=== PATIENT | male | born 1955 | race Caucasian/White ===

== ENCOUNTER 2018-11-14 15:41 | Inpatient (IN) ==
[2018-11-14] MEDS ORDERED: ASPIRIN CHEW 324 MG PO STA (16:04)
[2018-11-14] MEDS ORDERED: SODIUM CHLORIDE 0.9% 1000ML 1,000 ML IV STA (16:04)
--- NOTE | 2018-11-14 16:17 | Emergency Department Note ---
History of Present Illness General Chief Complaint: Shortness of Breath/Dyspnea Stated Complaint: SOB, CHEST TIGHTNESS Source: patient Mode of arrival: ambulatory Limitations: no limitations History of Present Illness Provider Complaint: chest pain Onset (ago): hour(s) greater than 10 Time: 02:54 Duration: intermittent Onset: during rest and during exertion Pain Location: substernal Pain Radiation: none Severity: moderate Maximum Pain Intensity: 6 Current Pain Intensity: 0 Quality: + tightness and + heaviness Relieved By: + rest Exacerbated By: + exertion Context: + recent travel (Pt. lives in [place] and travels back/forth to [place], as his works here); no recent illness, no recent surgery, no recent immobilization, no trauma/injury and no history of DVT/PE Associated symptoms: + nausea, + diaphoresis, + dyspnea and + cough Treatments prior to arrival: none This 63-year-old male patient presents emergency department today, ambulatory, accompanied by his . The patient reports chest tightness and dyspnea which awoke him from sleep at 2:54 AM. The patient states the symptoms overnight lasted for approximately 1 hour and 20 minutes, and were associated with cold sweats, nausea, diaphoresis. The patient states the symptoms went away and he was able to go back to sleep. He states earlier today, he was trying to mow the lawn and do some physical activity, but notices every time he walks or exerts himself in any way, the pain and dyspnea return. He does report a cough which began a proximally 1 week ago. He denies any fevers, congestion, rhinorrhea, abdominal pain, vomiting, diarrhea, constipation, or other recent illness. The patient does travel back and forth between [place] and [place] frequently, as his lives and works locally here and he still lives in [place]. The patient reports a history of hypertension and hyperlipidemia, but otherwise denies any history of cardiac events. He does have a family history of heart disease and [place] at 57 years old and his mother and CHF and IL 84 years old and his father. The patient rates his pain 0/10 at present. Home Medications Home Medications Medication Instructions Recorded Confirmed Type amlodipine-benazepril 1 cap PO DAILY 11/14/18 11/14/18 History aspirin 81 mg PO QAM 11/14/18 11/14/18 History indomethacin 50 mg PO DAILY 11/14/18 11/14/18 History pravastatin 40 mg PO HS 11/14/18 11/14/18 History Allergies Allergy/AdvReac Type Severity Reaction Status Date / Time No Known Allergies Allergy Verified 11/14/18 16:58 Past Med/Surg History Medical History Hyperlipidemia Hypertension Social History Preferred Language: Colombian Feels Safe at Home: Yes Smoking Status: Never smoker Review of Systems A total of 10 systems reviewed and were otherwise negative Physical Exam Vital Signs Vital Signs - 24 hr 11/14/18 15:44 11/14/18 17:10 Temperature 36.8 C Temperature Source Oral Sepsis Recent Fever Within 48 Hours No Sepsis New/Unexplained Change in Mental Status No Sepsis Action Taken by Nursing No Action Required Pulse Rate 98 H 71 Pulse Rate [Apical] 71 Pulse Rhythm Regular Pulse Rhythm [Apical] Regular Pulse Strength [Apical] Normal Respiratory Rate 18 16 Respiratory Effort / Characteristics Non-Labored Non-Labored Respiratory Depth Normal Normal Respiratory Pattern Regular Blood Pressure 145/86 H Blood Pressure [Right Arm] 134/73 Blood Pressure Mean 105 Blood Pressure Mean [Right Arm] 93 Blood Pressure Position Sitting Blood Pressure Position [Right Arm] Sitting Pulse Oximetry 96 96 Oxygen Delivery Method Room Air Room Air VITALS: Vitals are noted on the nurse's note and reviewed by myself. Vital signs stable. GENERAL: This is a 63-year-old white male, in no acute distress, nondiaphoretic, well-developed well-nourished. SKIN: The skin was without rashes, erythema, edema, or bruising. There is no tenting of the skin. Capillary reflex less than 2 seconds. HEAD: Normocephalic atraumatic. EARS: External auditory canals clear, tympanic membranes pearly ho without erythema or effusion bilaterally. EYES: Pupils equal round and reactive to light and accommodation. Conjunctivae without injection, sclerae without icterus. Extraocular movements intact. NOSE: Patent, turbinates without inflammation or discharge. No sinus tenderness. MOUTH: Mucous membranes moist. Tonsils are not enlarged. Pharynx without erythema or exudate. Uvula midline. Airway patent. Tongue does not deviate. NECK: Supple without nuchal rigidity. No lymphadenopathy. Cervical spine is nontender. No JVD. HEART: Regular rate and rhythm without murmurs gallops or rubs. LUNGS: Clear to auscultation bilaterally without wheezes, rales or rhonchi. No dullness to percussion. No retractions or accessory muscle use. ABDOMEN: Positive bowel sounds x 4. Normal tympanic percussion. Soft, nontender, without masses or organomegaly. Sebastian sign negative. No guarding or rebound tenderness. MUSCULOSKELETAL: No muscle atrophy, erythema, or edema noted. Full range of motion without joint tenderness in all extremities. No tenderness to palpation. Normal gait. Strength 5/5 throughout. NEURO: Patient was alert and oriented to person place and time. Normal sensation to light and sharp touch. No focal neurological deficits. Course The patient was seen and evaluated as above. IV access obtained, labs drawn. Patient given IV fluids and 324 mg aspirin chew. Imaging performed and reviewed by myself and radiologist as above. Labs reviewed by myself. I discussed the case with my attending. Initiated heparin drip. I discussed the findings with the patient at bedside. He was reassessed and continues to deny any current pain. Discussed the case with Dr. Landrum, [facility] hospitalist. Still awaiting return page from cardiology. She advised to speak with cardiology and advise her of the recommendation. Spoke with Dr. Nevarez, [facility] industrial maintenance repairer. Advised him of patient condition and requested recommendations. He advised that if the patient is not currently having chest pain to give the heparin, initiate 5 of IV Lopressor, and start scheduled metoprolol 12.5 mg twice daily. The patient will likely have heart cath performed on Friday. Discussed this recommendation with Dr. Landrum. Please see hospitalist and cardiology dictation regarding ongoing management care of this patient. Administered Medications Discontinued Medications Aspirin (Aspirin) 324 mg PO NOW STA Stop: 11/14/18 16:05 Last Admin: 11/14/18 16:13 Dose: 324 mg Documented by: [id number] Heparin Sodium/Dextrose () 1 ea IV ONE ONE; Protocol Stop: 11/14/18 17:33 Last Admin: 11/14/18 18:30 Dose: Not Given Documented by: [id number] Heparin Sodium/Dextrose (Heparin Sodium/Dextrose) Confirm Administered Dose 25,000 units IV .STK-MED ONE Stop: 11/14/18 18:26 Last Admin: 11/14/18 18:28 Dose: 31 ml Documented by: [id number] Cosigned by: [id number] Sodium Chloride (Nss 1000ml) 1,000 mls @ 999 mls/hr IV .Q1H1M STA Stop: 11/14/18 17:04 Last Infusion: 11/14/18 17:12 Dose: 0 mls/hr Documented by: [id number] Admin: 11/14/18 16:13 Dose: 999 mls/hr Documented by: [id number] Metoprolol Tartrate (Lopressor) 5 mg IV NOW STA Stop: 11/14/18 17:45 Last Admin: 11/14/18 18:15 Dose: 5 mg Documented by: [id number] Medical Decision Making Differential Diagnosis + fracture of rib, + pneumothorax, + stable angina, + unstable angina pectoris, + atypical chest pain, + st elevation myocardial infarction, + costochondritis, + chest pain, + biliary colic, + cardiac ischemia, + myocarditis, + pericarditis, + costochondritis, + pleurisy, + aortic dissection, + pulmonary embolism, + pneumonia, + musculoskeletal, + infections, + cholecystitis, + panc reatitis and + esophageal rupture Home Medications Current Medication List: was personally reviewed by me Laboratory Data Attestation: I reviewed the patient's lab results. No leukocytosis, anemia, thrombocytopenia. Renal, hepatic function, and electrolytes without significant abnormality. Coags normal. D-dimer mildly elevated at 590. Troponin elevated 3.78. Result diagrams: 11/14/18 16:40 11/14/18 16:07 Lab Results 11/14/18 11/14/18 11/14/18 Range/Units 16:07 16:07 16:07 WBC (4.8-10.8) K/uL RBC (4.7-6.1) M/uL Hgb (14.0-18.0) g/dL Hct (42-52) % MCV (80-100) fL MCH (25-34) pg MCHC (32-36) g/dL RDW Std Deviation (36.4-46.3) fL RDW Coeff of Kathy (11.5-14.5) % Plt Count (130-400) K/uL MPV (7.4-10.4) fL Immature Gran % (Auto) % Neut % (Auto) % Lymph % (Auto) % Fajardo % (Auto) % Eos % (Auto) % Baso % (Auto) % Immature Gran # (Auto) (0.00-0.02) K/uL Neut # (Auto) (1.4-6.5) K/uL Lymph # (Auto) (1.2-3.4) K/uL Fajardo # (Auto) (0.11-0.59) K/uL Eos # (Auto) (0-0.5) K/uL Baso # (Auto) (0-0.2) K/uL PT 10.2 (9.0-12.0) Seconds INR 1.0 (0.9-1.1) APTT 25.1 (21.0-31.0) Seconds PTT Ratio 0.9 D-Dimer 590 H* Cancelled (0-500) ug/L FEU Sodium 141 (136-145) mmol/L Potassium 4.1 (3.5-5.1) mmol/L Chloride 110 H (98-107) mmol/L Carbon Dioxide 26 (21-32) mmol/L Anion Gap 5.0 (3-11) BUN 27 H (7-18) mg/dl Creatinine 1.20 (0.6-1.4) mg/dl Est Cr Clr Drug Dosing 77.9 ml/min Est GFR ( Amer) 74.1 Est GFR (Non-Af Amer) 64.0 BUN/Creatinine Ratio 22.4 H (10-20) Glucose 96 (70-99) mg/dl Calcium 9.0 (8.5-10.1) mg/dl Total Bilirubin 0.2 (0.2-1) mg/dl AST 41 H (15-37) U/L ALT 59 (12-78) U/L Alkaline Phosphatase 86 (45-117) U/L Troponin I 3.780 H* (0-0.045) ng/ml Total Protein 7.2 (6.4-8.2) gm/dl Albumin 3.8 (3.4-5.0) gm/dl Globulin 3.4 (2.5-4.0) gm/dl Albumin/Globulin Ratio 1.1 (0.9-2) Lipase 114 (73-393) U/L Specimen Hemolysis 11/14/18 Range/Units 16:40 WBC 9.41 (4.8-10.8) K/uL RBC 4.72 (4.7-6.1) M/uL Hgb 13.7 L (14.0-18.0) g/dL Hct 39.9 L (42-52) % MCV 84.5 (80-100) fL MCH 29.0 (25-34) pg MCHC 34.3 (32-36) g/dL RDW Std Deviation 45.1 (36.4-46.3) fL RDW Coeff of Kathy 14.5 (11.5-14.5) % Plt Count 272 (130-400) K/uL MPV 8.8 (7.4-10.4) fL Immature Gran % (Auto) 0.1 % Neut % (Auto) 59.0 % Lymph % (Auto) 27.1 % Fajardo % (Auto) 9.1 % Eos % (Auto) 4.5 % Baso % (Auto) 0.2 % Immature Gran # (Auto) 0.01 (0.00-0.02) K/uL Neut # (Auto) 5.55 (1.4-6.5) K/uL Lymph # (Auto) 2.55 (1.2-3.4) K/uL Fajardo # (Auto) 0.86 H (0.11-0.59) K/uL Eos # (Auto) 0.42 (0-0.5) K/uL Baso # (Auto) 0.02 (0-0.2) K/uL PT (9.0-12.0) Seconds INR (0.9-1.1) APTT (21.0-31.0) Seconds PTT Ratio D-Dimer (0-500) ug/L FEU Sodium (136-145) mmol/L Potassium (3.5-5.1) mmol/L Chloride (98-107) mmol/L Carbon Dioxide (21-32) mmol/L Anion Gap (3-11) BUN (7-18) mg/dl Creatinine (0.6-1.4) mg/dl Est Cr Clr Drug Dosing ml/min Est GFR ( Amer) Est GFR (Non-Af Amer) BUN/Creatinine Ratio (10-20) Glucose (70-99) mg/dl Calcium (8.5-10.1) mg/dl Total Bilirubin (0.2-1) mg/dl AST (15-37) U/L ALT (12-78) U/L Alkaline Phosphatase (45-117) U/L Troponin I (0-0.045) ng/ml Total Protein (6.4-8.2) gm/dl Albumin (3.4-5.0) gm/dl Globulin (2.5-4.0) gm/dl Albumin/Globulin Ratio (0.9-2) Lipase (73-393) U/L Specimen Hemolysis Imaging Data Chest x-ray: Radiologist's impression: XR chest 1V portable CLINICAL HISTORY: 63 years-old Male presenting with Chest Pain, chest tightness. TECHNIQUE: Portable upright AP view of the chest was obtained. COMPARISON: None. FINDINGS: Cardiac silhouette borderline enlarged. No focal opacity. No large effusion or pneumothorax. Osseous structures normal. Upper abdomen normal. IMPRESSION: 1. No acute cardiopulmonary disease. Electronically signed by: Nate Stanton M.D. 11/14/2018 4:30 PM ECG Data Attestation: I personally reviewed and interpreted this ECG as follows: Indication: chest pain Rate (beats per minute): 87 Rhythm: normal sinus Findings: + ST depression (Anterolateral); no ectopy Comparison ECG Date: no prior available Blood Pressure Blood Pressure Findings: Normal blood pressure MDM Narrative This 63-year-old male patient presented to the emergency department today complaining of chest pain and dyspnea on exertion. Symptoms began suddenly while sleeping lasted for approximately an hour and 20 minutes. The pain went away and the patient was able to go back to bed, but upon awakening earlier today, noticed he was continuing to have pain with even mild exertion. He decided to come to the emergency department due to concerns of his symptoms, and upon arrival was asymptomatic except with minimal exertion. Work-up here in the ED did show some EKG changes. There was some ST depression consistent with ischemia in the anterior lateral leads. The patient's troponin was elevated at 3.780. He did have an elevated d-dimer 590, but I suspect this is associated with the cardiac event. Will hold off on CT scanning at this time and defer to medicine/cardiology, given Wells' Criteria 1 point d/t age, no hypoxia, no tachycardia, and no other concerning symptoms for PE. Work-up c onsistent with NSTEMI. The patient was started on IV heparin and Lopressor. I did consult with the industrial maintenance repairer who provided recommendations and suspects the patient will go for a heart cath on Friday. He will review the case, but the patient will be admitted under the hospitalist service at this time. Please see their dictation regarding ongoing management care of this patient. The chart was completed utilizing [employer] Speech voice recognition software. Grammatical errors, random word insertions, pronoun errors, and incomplete sentences are an occasional consequence of this system due to software limitations, ambient noise, and hardware issues. Any formal questions or concerns about the content, text, or information contained within the body of this dictation should be directly addressed to the provider for clarification. Impression & Plan Non-ST elevation myocardial infarction (NSTEMI) Critical Care Time Critical Care Time: Yes Total Critical Care Time: 30 Discharge Plan Visit Data Chief Complaint: Shortness of Breath/Dyspnea Stated Complaint: SOB, CHEST TIGHTNESS ED Provider: Jermain Aguilar ED Midlevel Provider: Brianna Cartwright Discharge Problem: Non-ST elevation myocardial infarction (NSTEMI) Patient Disposition: Admitted As Inpatient Condition: Good Forms Stand Alone Forms: My [facility], Important Visit Information Prescriptions Prescriptions: No Action pravastatin 40 mg Tablet 40 mg PO HS RF: 0 aspirin 81 mg Tablet,Delayed Release (Dr/Ec) 81 mg PO QAM RF: 0 amlodipine-benazepril 5-20 mg Capsule 1 cap PO DAILY RF: 0 indomethacin 50 mg Capsule 50 mg PO DAILY RF: 0 Referrals Referrals: PCP,NO [Primary Care Provider] -
--- NOTE | 2018-11-14 16:32 | XRay Report ---
XR chest 1V portable CLINICAL HISTORY: 63 years-old Male presenting with Chest Pain, chest tightness. TECHNIQUE: Portable upright AP view of the chest was obtained. COMPARISON: None. FINDINGS: Cardiac silhouette borderline enlarged. No focal opacity. No large effusion or pneumothorax. Osseous structures normal. Upper abdomen normal. IMPRESSION: 1. No acute cardiopulmonary disease. Electronically signed by: Nate Stanton M.D. 11/14/2018 4:30 PM
[2018-11-14 16:51] LABS: Basophils # (auto) 0.02 K/uL (0-0.2); Basophils % (auto) 0.2 %; Eosinophils # (auto) 0.42 K/uL (0-0.5); Eosinophils % (auto) 4.5 %; Hematocrit (blood only) 39.9 % (42-52); Hemoglobin 13.7 g/dL (14.0-18.0); Immature Granulocytes # (auto) 0.01 K/uL (0.00-0.02); Immature Granulocytes % (auto) 0.1 %; Lymphocytes # (auto) 2.55 K/uL (1.2-3.4); Lymphocytes % (auto) 27.1 %; Mean Corpuscular Hgb Conc 34.3 g/dL (32-36); Mean Corpuscular Volume 84.5 fL (80-100); Mean Platelet Volume 8.8 fL (7.4-10.4); Monocytes # (auto) 0.86 K/uL (0.11-0.59); Monocytes % (auto) 9.1 %; Neutrophils # (auto) 5.55 K/uL (1.4-6.5); Platelet Count 272 K/uL (130-400); RDW Coefficient of Variation 14.5 % (11.5-14.5); RDW Standard Deviation 45.1 fL (36.4-46.3); Red Blood Count 4.72 M/uL (4.7-6.1); White Blood Count 9.41 K/uL (4.8-10.8)
[2018-11-14 17:06] LABS: Partial Thromboplastin Ratio 0.9; Partial Thromboplastin Time 25.1 Seconds (21.0-31.0); Prothrombin Time 10.2 Seconds (9.0-12.0)
[2018-11-14 17:08] LABS: D Dimer 590 ug/L FEU (0-500)
[2018-11-14 17:19] LABS: Albumin Level 3.8 gm/dl (3.4-5.0); BUN Creatinine Ratio 22.4 (10-20); Creatinine Clr Calc Pharmacy 77.9 ml/min; Est GFR (African American) 74.1; Potassium 4.1 mmol/L (3.5-5.1)
[2018-11-14 17:23] LABS: Albumin Globulin Ratio 1.1 (0.9-2); Bilirubin,Total 0.2 mg/dl (0.2-1); Globulin 3.4 gm/dl (2.5-4.0); Total Protein 7.2 gm/dl (6.4-8.2); Troponin I 3.78 ng/ml (0-0.045)
[2018-11-14] MEDS ORDERED: Heparin IV Standard *NO* Bolus IV ONE ×2 (17:32→20:01)
[2018-11-14] MEDS ORDERED: METOPROLOL TARTRATE 1 MG/ML VIAL IV STA (17:44)
[2018-11-14] MEDS ORDERED: HEPARIN 25000 UNIT/500 ML D5W IV ONE (18:25)
--- NOTE | 2018-11-14 19:14 | History & Physical Report ---
Date of Service November 14, 2018 Assessment & Plan (1) Non-ST elevation myocardial infarction (NSTEMI): Trop elevated at 3.7 on admission Serials pending EKG with nonspecific changes PRP, CBC neg for acute Dr. Nevarez planning to monitor for now with possible cath on Friday ECHO pending Tele monitor Heparin drip, lopressor (2) Gout: PRN indomethicin (3) Hyperlipidemia: continue home meds (4) HTN (hypertension): continue home meds (5) DVT prophylaxis: Heparin drip for DVT proph History of Present Illness Primary Care Provider: NO PCP 63 y/o M c/o chest pain. Pt states that yesterday was a normal day for him. He had no issues. He woke around 2-3a with chest stiffness, nausea, and diaphoresis. This lasted about an hour but did resolve and he was able to go back to sleep. He was mowing the lawn this morning when he had return of chest pain. It did resolve but now he has pain return with any activity, including short walking distances. He does get SOB with this. No return of nausea or diaphoresis. He has no prior episodes of chest pain. Pt denies fever, abd pain, v/c/d, LE pain or swelling. PA in the ED spoke with Dr. Nevarez who plans for lopressor and heparin. He will plan for a cath on Friday unless pt has new EKG changes or chest pain at rest. Allergies Allergy/AdvReac Type Severity Reaction Status Date / Time No Known Allergies Allergy Verified 11/14/18 16:58 Home Medications Home Medications Medication Instructions Recorded Confirmed Type amlodipine-benazepril 1 cap PO DAILY 11/14/18 11/14/18 History aspirin 81 mg PO QAM 11/14/18 11/14/18 History indomethacin 50 mg PO DAILY 11/14/18 11/14/18 History pravastatin 40 mg PO HS 11/14/18 11/14/18 History Past Med/Surg History Medical History Hyperlipidemia Hypertension Family History Mother Diabetes Myocardial infarction Father Myocardial infarction CHF (congestive heart failure) Social History Preferred Language: Kosovan Feels Safe at Home: Yes Smoking Status: Never smoker Hx Alcohol Use: Yes (occasionally, maybe 1 drink every 2-3 months) Hx Substance Use: No Review of Systems Review of Systems: Pertinent positives and negatives reviewed in HPI--all others negative Physical Exam Constitutional: WD/WN, vitals as above Eyes: normal visual guevara by confrontation and + anicteric sclerae Neck: normal visual inspection and trachea midline Respiratory: normal respiratory effort, lungs clear to auscultation Cardiovascular: Rate/Rhythm: regular rate and regular rhythm Gastrointestinal (Abdomen): Inspection/Auscultation: abdomen not distended Percussion/Palpation: abdomen soft; abdomen nontender Musculoskeletal: Head/Neck/Chest: normocephalic and head atraumatic negative for edema, peripheral pulses intact Skin: no rashes, warm and dry Neurologic: awake; not confused Speech / Cognition: normal speech Psychiatric: A+Ox3, euthymic affect Results & Data Vital Signs (Past 12 Hours) Vital Signs Temp Pulse Pulse Resp BP BP Pulse Ox 11/14/18 19:00 69 20 93 11/14/18 18:30 69 18 123/76 95 11/14/18 18:00 74 21 141/81 H 95 11/14/18 17:30 80 26 H 149/83 H 96 11/14/18 17:10 76 71 20 134/73 134/73 96 11/14/18 17:00 75 21 11/14/18 16:30 78 23 11/14/18 16:13 84 17 11/14/18 15:44 36.8 C 98 H 18 145/86 H 96 Diagnostic Findings CXR: neg for acute ECG Additional Comments: ST changes, non specific Code Status & VTE Plan Code Status Full code VTE Prophylaxis Plan VTE Prophylaxis will be ordered: Yes PG Care Time/CCT Total # of Minutes Spent Total Time Spent with Patient: Total time spent is greater than 50% in coordination of care (as documented) at patient's floor/unit and/or counseling patient:
[2018-11-14] MEDS ORDERED: ACETAMINOPHEN 325 MG TAB PO PRN (20:01)
[2018-11-14] MEDS ORDERED: ONDANSETRON INJ 2 MG/ML 2 ML VIAL IV PRN (20:01)
[2018-11-14] MEDS ORDERED: MAGNESIUM HYDROXIDE SUSP 30 ML UDC PO PRN (20:01)
[2018-11-14] MEDS ORDERED: NITROGLYCERIN SL 0.4 MG/TAB TAB SL PRN (20:01)
[2018-11-14] MEDS ORDERED: INDOMETHACIN 25 MG CAP PO PRN (20:01)
[2018-11-14] MEDS: Heparin Adult STANDARD Wt-Based Dextrose 5% 25,000 units/500 mL IV SCH (20:02)
[2018-11-14] MEDS ORDERED: PRAVASTATIN SOD 40 MG TAB PO SCH (21:00)
[2018-11-15 01:08] LABS: Partial Thromboplastin Ratio 1.5; Partial Thromboplastin Time 40.3 Seconds (21.0-31.0)
[2018-11-15] MEDS ORDERED: HEPARIN IV BOLUS 7,000 UNITS in SYRINGE 0 ML IV ONE (02:15)
[2018-11-15] MEDS ORDERED: PERFLUTREN LIPID MICROSPHERE (DEFINITY) IV ONE (07:27)
[2018-11-15 07:29] LABS: Partial Thromboplastin Ratio 4.6
[2018-11-15] MEDS ORDERED: CLOPIDOGREL BISULFATE 300 MG TAB PO STA (07:29)
[2018-11-15] MEDS: ASPIRIN 81 MG ECTAB PO SCH (07:30)
[2018-11-15] MEDS: ENALAPRIL MALEATE 10 MG TAB PO SCH (07:31)
[2018-11-15] MEDS: Heparin Adult STANDARD Wt-Based Dextrose 5% 25,000 units/500 mL IV SCH ×2 (07:33→23:39)
[2018-11-15 07:40] LABS: Partial Thromboplastin Time 124.7 Seconds (21.0-31.0)
[2018-11-15] MEDS: METOPROLOL TARTRATE 25 MG TAB PO SCH ×3 (08:56→20:42)
[2018-11-15] MEDS ORDERED: AMLODIPINE BESYLATE 5 MG TAB PO SCH (09:00)
--- NOTE | 2018-11-15 09:56 | Cardiology Consultation ---
Date of Consultation November 15, 2018 Assessment & Plan (1) Non-ST elevation myocardial infarction (NSTEMI): Patient's symptoms and objective findings are consistent with a recent myocardial infarction. The overall biomarker elevation was small. He does not have regional wall motion abnormalities on his echocardiogram suggesting a very limited infarct. He has some risk factors for coronary disease to include hypertension, hyperlipidemia, age and gender. He was started on heparin. He has been administered both aspirin and Plavix. He is on an anti-lipid agent which should be changed to a more potent statin such as atorvastatin 80 milligrams daily. He can continue his enalapril. We discussed options for additional evaluation to include coronary angiography and possible percutaneous intervention versus medical therapy. I recommended coronary angiography tomorrow provided there are no recurrent symptoms or changes in his clinical course. I described the risks benefits and alternatives to the patient and his and they are willing to proceed. Present on Admission?: Yes (2) Hyperlipidemia: He was on pravastatin as an outpatient. Notes suggest changing this to atorvastatin 80 milligrams. Present on Admission?: Yes History of Present Illness Reason for Consultation: NSTEMI Requesting Physician: Diallo Attending Physician: Papa Yancey MD History of Present Illness The patient is a 63-year-old gentleman without a known history of heart disease who presented to the emergency room with symptoms of dyspnea and chest tightness. Patient states that he was woken from sleep 2 nights ago with symptoms of breathing difficulty and chest tightness. This is fairly moderate in severity. He did not report radiation to the arms or back. The symptoms were not positional in nature. There is not any specific activity relieved his symptoms but over the course of approximately 1-1 and 0.5 hours the symptoms resolved and he was able to go back to sleep. Yesterday morning when he awoke he had no symptoms except with activity. He states that even with mild walking he had recurrence of his symptoms. He attempted to perform some lawn mowing but due to the recurrent nature of his symptoms presented to emergency room. At the time of presentation he had no symptoms. Patient is an active individual who is generally accustomed to exercise and sports. He denies similar symptoms in the past or any other symptoms associated with activity. He has some left shoulder discomfort which is chronic in nature and limits some activity. He has not had dizziness or lightheadedness. He has never suffered syncope. He did report 1 episode of presyncope which occurred a couple of months ago. This occurred in the middle of the night was associated with some fairly severe back and abdominal discomfort. He did not actually lose consciousness. Allergies Allergy/AdvReac Type Severity Reaction Status Date / Time No Known Allergies Allergy Verified 11/14/18 16:58 Home Medications Home Medications Medication Instructions Recorded Confirmed Type amlodipine-benazepril 1 cap PO DAILY 11/14/18 11/14/18 History aspirin 81 mg PO QAM 11/14/18 11/14/18 History indomethacin 50 mg PO DAILY 11/14/18 11/14/18 History pravastatin 40 mg PO HS 11/14/18 11/14/18 History Patient History Medical History Gout Hyperlipidemia Hypertension Surgical History H/O inguinal hernia repair Family History Mother Diabetes Myocardial infarction Father Myocardial infarction CHF (congestive heart failure) Social History Preferred Language: Nicaraguan Communication Ability: Effective Beliefs That Will Affect Care: None Current Living Situation: Spouse Feels Safe at Home: Yes Smoking Status: Never smoker Second Hand Exposure: No Hx Alcohol Use: No Hx Substance Use: No Review of Systems Review of Systems: All systems reviewed & are unremarkable except as noted in HPI & below He has what is described as bursitis in the left shoulder. This waxes and wanes in severity. His states that he has been snoring more lately, possibly because he has been sleeping on his back due to shoulder discomfort. He did not report orthopnea or paroxysmal nocturnal dyspnea. He has not been aware of any palpitations or racing heartbeats. He denies any lower extremity edema. No other recent constitutional symptoms such as fevers or chills. Physical Exam Physical Exam: The patient is alert and oriented. Mood and affect appeared normal. He answered all questions appropriately. HEENT: Pupils are equal and reactive to light and accommodation. Extraocular movements are intact. The sclerae are anicteric. Neuro: Cranial nerves intact Neck: Patient's neck is supple. He has palpable carotid pulses bilaterally without bruits on auscultation. There is no evidence of jugular venous distention. The thyroid is not enlarged. Lungs: Clear to auscultation bilaterally. He has good air movement without use of accessory muscles. No rales wheezes or rhonchi. Cardiac: Heart demonstrates a regular rate and rhythm. Normal S1 and S2. No murmurs on examination. Pulses: The patient has palpable radial pulses bilaterally that are equal in intensity Extremities: There was no evidence of hypoperfusion. There is no cyanosis or clubbing. There is no edema. Skin: I did not appreciate any rashes on examination today. Results & Data Vital Signs (Past 12 Hours) Vital Signs Temp Pulse Pulse Resp BP Pulse Ox 11/15/18 09:00 68 11/15/18 07:08 36.8 C 72 18 126/67 96 11/15/18 04:00 36.8 C 67 19 116/73 96 11/14/18 23:20 36.6 C 67 17 120/71 97 11/14/18 23:16 75 Laboratory Results Abnormal Lab Results 11/14/18 11/14/18 11/14/18 16:07 16:07 16:07 WBC RBC Hgb Hct MCV MCH MCHC RDW Std Deviation RDW Coeff of Kathy Plt Count MPV Immature Gran % (Auto) Neut % (Auto) Lymph % (Auto) Beckham % (Auto) Eos % (Auto) Baso % (Auto) Immature Gran # (Auto) Neut # (Auto) Lymph # (Auto) Beckham # (Auto) Eos # (Auto) Baso # (Auto) PT 10.2 INR 1.0 APTT 25.1 PTT Ratio 0.9 D-Dimer 590 H* Cancelled Sodium 141 Potassium 4.1 Chloride 110 H Carbon Dioxide 26 Anion Gap 5.0 BUN 27 H Creatinine 1.20 Est Cr Clr Drug Dosing 77.9 Est GFR ( Amer) 74.1 Est GFR (Non-Af Amer) 64.0 BUN/Creatinine Ratio 22.4 H Glucose 96 Calcium 9.0 Total Bilirubin 0.2 AST 41 H ALT 59 Alkaline Phosphatase 86 Troponin I 3.780 H* Total Protein 7.2 Albumin 3.8 Globulin 3.4 Albumin/Globulin Ratio 1.1 Lipase 114 Specimen Hemolysis Hepatitis C Ab Screen 11/14/18 11/14/18 11/15/18 16:40 20:36 00:39 WBC 9.41 RBC 4.72 Hgb 13.7 L Hct 39.9 L MCV 84.5 MCH 29.0 MCHC 34.3 RDW Std Deviation 45.1 RDW Coeff of Kathy 14.5 Plt Count 272 MPV 8.8 Immature Gran % (Auto) 0.1 Neut % (Auto) 59.0 Lymph % (Auto) 27.1 Beckham % (Auto) 9.1 Eos % (Auto) 4.5 Baso % (Auto) 0.2 Immature Gran # (Auto) 0.01 Neut # (Auto) 5.55 Lymph # (Auto) 2.55 Beckham # (Auto) 0.86 H Eos # (Auto) 0.42 Baso # (Auto) 0.02 PT INR APTT 40.3 H PTT Ratio 1.5 D-Dimer Sodium Potassium Chloride Carbon Dioxide Anion Gap BUN Creatinine Est Cr Clr Drug Dosing Est GFR ( Amer) Est GFR (Non-Af Amer) BUN/Creatinine Ratio Glucose Calcium Total Bilirubin AST ALT Alkaline Phosphatase Troponin I 4.760 H* Total Protein Albumin Globulin Albumin/Globulin Ratio Lipase Specimen Hemolysis Hepatitis C Ab Screen 11/15/18 11/15/18 11/15/18 01:59 01:59 06:56 WBC RBC Hgb Hct MCV MCH MCHC RDW Std Deviation RDW Coeff of Kathy Plt Count MPV Immature Gran % (Auto) Neut % (Auto) Lymph % (Auto) Beckham % (Auto) Eos % (Auto) Baso % (Auto) Immature Gran # (Auto) Neut # (Auto) Lymph # (Auto) Beckham # (Auto) Eos # (Auto) Baso # (Auto) PT INR APTT 124.7 H* PTT Ratio 4.6 D-Dimer Sodium Potassium Chloride Carbon Dioxide Anion Gap BUN Creatinine Est Cr Clr Drug Dosing Est GFR ( Amer) Est GFR (Non-Af Amer) BUN/Creatinine Ratio Glucose Calcium Total Bilirubin AST ALT Alkaline Phosphatase Troponin I 3.810 H* Total Protein Albumin Globulin Albumin/Globulin Ratio Lipase Specimen Hemolysis Hepatitis C Ab Screen Neg Diagnostic Findings Chest x-ray obtained at the time of admission did not reveal any acute cardiopulmonary disease Echocardiogram performed today revealed preserved LV systolic function with normal wall motion. No significant valvular heart disease. ECG Additional Comments: Normal sinus rhythm with some T-wave inversions in the limb leads. Otherwise normal Telemetry reviewed overnight no arrhythmia
--- NOTE | 2018-11-15 11:34 | Hospitalist Progress Note ---
Date of Service November 15, 2018 Assessment & Plan (1) Non-ST elevation myocardial infarction (NSTEMI): Trop elevated at 3.7 on admission, then 4.7, then down to 3.8. Initial EKG had ST depressions in the lateral leads (V3-V6), TWI in III. - Heparin gtt - DAPT (ASA + Plavix; loaded on 11/15) - Cardiology consulted - Plan for [facility] on Friday - Continue beta-thao - Change pravastatin to atorvastatin (no prior reaction to high-intensity statins) - Echo on 11/15 shows normal EF; no regional wall motion abnormalities I spent 35 minutes counseling the patient and discussing the current state, treatment course, and prognosis of his/her disease, including his NSTEMI, plans for management, and future care of cardiac health. (2) Gout: No current gout issues. - Indomethicin PRN (3) HTN (hypertension): BP is normally well-controlled on home meds. - Hold amlodipine - Continue enalapril - New beta-thao for his NSTEMI - Monitor BP (4) DVT prophylaxis: Heparin drip for NSTEMI Subjective Doing well. No chest tightness. No other symptoms. Review of Systems Review of Systems: All systems reviewed & are unremarkable except as noted in HPI & below Physical Exam Constitutional: WD/WN, vitals as above Eyes: normal visual guevara by confrontation and + anicteric sclerae Neck: normal visual inspection and trachea midline Respiratory: normal respiratory effort, lungs clear to auscultation Cardiovascular: Rate/Rhythm: regular rate and regular rhythm Gastrointestinal (Abdomen): Inspection/Auscultation: abdomen not distended Percussion/Palpation: abdomen soft; abdomen nontender Musculoskeletal: Head/Neck/Chest: normocephalic and head atraumatic Skin: no rashes, warm and dry Neurologic: awake; not confused Speech / Cognition: normal speech Psychiatric: A+Ox3, euthymic affect Results & Data Vital Signs (Past 12 Hours) Vital Signs Temp Pulse Pulse Resp BP Pulse Ox 11/15/18 09:00 68 11/15/18 07:08 36.8 C 72 18 126/67 96 11/15/18 04:00 36.8 C 67 19 116/73 96 PG Care Time/CCT Total # of Minutes Spent Total Time Spent with Patient: Total time spent is greater than 50% in coordination of care (as documented) at patient's floor/unit and/or counseling patient:
[2018-11-15 14:15] LABS: Partial Thromboplastin Time 55.4 Seconds (21.0-31.0)
[2018-11-15] MEDS: ATORVASTATIN 40 MG TAB PO SCH (20:43)
[2018-11-16] MEDS: Heparin Adult STANDARD Wt-Based Dextrose 5% 25,000 units/500 mL IV SCH (02:03)
[2018-11-16 06:07] LABS: Hematocrit (blood only) 41.4 % (42-52); Hemoglobin 13.8 g/dL (14.0-18.0); Mean Corpuscular Hgb Conc 33.3 g/dL (32-36); Mean Corpuscular Volume 85.4 fL (80-100); Platelet Count 231 K/uL (130-400); RDW Coefficient of Variation 14.6 % (11.5-14.5); RDW Standard Deviation 45.3 fL (36.4-46.3); Red Blood Count 4.85 M/uL (4.7-6.1); White Blood Count 8.18 K/uL (4.8-10.8)
[2018-11-16 06:26] LABS: Partial Thromboplastin Ratio 2.1
[2018-11-16 06:30] LABS: Partial Thromboplastin Time 57.8 Seconds (21.0-31.0)
[2018-11-16 06:39] LABS: BUN Creatinine Ratio 16.7 (10-20); Calcium 8.9 mg/dl (8.5-10.1); Creatinine Clr Calc Pharmacy 79.5 ml/min; Est GFR (African American) 77.2; Est GFR (Non-African American) 66.7; Potassium 4.2 mmol/L (3.5-5.1)
[2018-11-16] MEDS ORDERED: CLOPIDOGREL BISULFATE 75 MG TAB PO SCH ×2 (09:00)
[2018-11-16] MEDS: ENALAPRIL MALEATE 10 MG TAB PO SCH (09:43)
[2018-11-16] MEDS: METOPROLOL TARTRATE 25 MG TAB PO SCH ×3 (09:43→20:13)
[2018-11-16] MEDS: CLOPIDOGREL BISULFATE 75 MG TAB PO SCH (09:48)
[2018-11-16] MEDS: ASPIRIN 81 MG ECTAB PO SCH (09:48)
--- NOTE | 2018-11-16 12:04 | Pre Anesthesia Assessment ---
Date of Service November 16, 2018 Pre Sedation Assessment Vital Signs Temp Pulse Resp BP Pulse Ox 11/16/18 07:09 36.8 C 64 16 138/82 96 11/16/18 03:08 36.6 C 64 16 136/73 96 11/15/18 22:59 36.5 C 64 16 138/72 94 11/15/18 19:44 36.9 C 67 20 118/69 94 11/15/18 14:59 37.0 C 68 18 118/70 93 Cardiovascular + regular rate Respiratory + respiratory effort normal Pre-Sedation Airway Assessment Smoking Status: Never smoker Hx Sleep Apnea: No Hx Difficult Intubation: No Short, Thick Neck: No Thyromental Distance: > or= 3.5 Finger Breadths Oral Cavity: + WNL Mallampati Class: III ASA: ASA3 Procedure Planning Contraindications for Sedation: none Current Medications Reviewed: Yes Notes The planned sedation has been discussed with the patient. Informed Consent was obtained. I have identified the patient, determined the appropriateness of sedation and have assessed the patient immediately prior to the procedure. All medicine(s) and interventions are by my order.
[2018-11-16] MEDS ORDERED: HEPARIN (PORCINE) 1000 UNIT/ML 10 ML (CATH LAB USE ONLY) ONE ×2 (12:21→13:15)
[2018-11-16] MEDS ORDERED: fentaNYL citrate 100 MCG/2 ML VIAL ONE (12:21)
[2018-11-16] MEDS ORDERED: MIDAZOLAM HCL 1 MG/ML 2ML VIAL ONE (12:21)
[2018-11-16] MEDS ORDERED: NiCARDipine HCL INJ 2.5 MG/ML 10 ML AMP ONE (12:22)
[2018-11-16] MEDS ORDERED: NITROGLYCERIN/D5W 100MCG/ML 20ML SYR ONE (12:22)
--- NOTE | 2018-11-16 12:55 | Cardiac Catheterization ---
Cardiac Cath Procedure: Brief Procedure Date November 16, 2018 Pre-Procedure Diagnosis Pre-Procedure Diagnosis: Non STEMI AUC Score AUC Score: 8 Post-Procedure Diagnosis Post-Procedure Diagnosis: Severe CAD Procedure(s) Performed Procedure(s) Performed: Coronary Angiography and Left Heart Cath Police Dispatcher Constantino Nevarez MD Sand Slinger Operator(s) none Estimated Blood Loss Estimated Blood Loss: 5cc Medication(s) Medication(s): Heparin, Morphine, Nicardipine, Nitroglycerin and Versed Preliminary Findings ACS involving the proximal the RCA. NOn-obstructive mid LAD disease and ostial LCX disease. Normal LVEDP Recommendations Recommendations: PCI without planned CABG Procedural Complication(s) None Disposition PCU
[2018-11-16] MEDS ORDERED: CLOPIDOGREL BISULFATE 300 MG TAB ONE (13:29)
--- NOTE | 2018-11-16 13:39 | Post Anesthesia Assessment ---
Date of Service November 16, 2018 Post Sedation Assessment Vital Signs Temp Pulse Resp BP Pulse Ox 11/16/18 07:09 36.8 C 64 16 138/82 96 11/16/18 03:08 36.6 C 64 16 136/73 96 11/15/18 22:59 36.5 C 64 16 138/72 94 11/15/18 19:44 36.9 C 67 20 118/69 94 11/15/18 14:59 37.0 C 68 18 118/70 93 Recovery Score Activity: Moves 4 extremities Respiration: Deep Breath/Cough Circulation: +/-20% PreAnes Value Consciousness: Fully Awake Oxygen Saturation: O2 needed for >90% Discharge Sedation Level of Care: Fast Track Phase II Post Sedation Plan On clinical assessment, the patient appears to have tolerated the sedation without complications. Patient is recovering as anticipated. Patient will continue to be monitored by nursing and may be discharged when sedation discharge criteria are met per below protocol. Upon Completions of procedure and additional 15 minutes continue every 5 minute vital signs and the P.A.R. score; then discharge to a Phase I or Fast Track to Phase II per the following guidelines: * Discharge Patient to appropriate Phase II area if PAR is 8 or greater or return to pre- procedure baseline. The post - procedure orders will be as directed. * If PAR score is less than 8 or not return to pre-procedure baseline then patient will follow Phase I monitoring till PAR is reached for Phase II. The Phase I may be done in procedure room or may call to secure a Phase I area. * If naloxone or flumazenil are used for reversal, hold in Phase I for continued monitoring from when last reversal dose was given for a minimum of 60 minutes or longer pending the nurse and/or physician discretion of patient condition before discharge to Phase II. Please call the Sedation Physician to re-evaluate and complete post-note for discharge to Phase II area. Do NOT discharge from procedure sedation or Phase 1 until post- sedation evaluation note is complete by procedure /sedation MD Sedation Discharge Instructions to be given to the patient at discharge to home.
--- NOTE | 2018-11-16 13:45 | Cardiac Catheterization ---
Cardiac Cath Procedure Full Procedure Date November 16, 2018 Pre-Procedure Diagnosis Pre-Procedure Diagnosis: Non STEMI AUC Score AUC Score: 8 Post-Procedure Diagnosis Post-Procedure Diagnosis: Severe CAD and Successful PCI Procedure(s) Performed Procedure(s) Performed: Coronary Angiography and Drug Eluting Stent Palliative Care Specialist Constantino Tsang MD Foundry Helper(s) Viki Estimated Blood Loss Estimated Blood Loss: 20 Medication(s) Medication(s): Clopidogrel, Fentanyl, Heparin, Nicardipine, Nitroglycerin and Versed Summary of Findings Indication: High risk NSTEMI Access: 6 Fr slender right radial artery Catheters: JR4 guide Findings: For full details of patient's coronary angiography please see cath report dictated by Dr. Nevarez. Briefly, patient found to have acute severe single vessel disease involving his mid and distal RCA. Decision to proceed with PCI. -- PCI -- Antithrombotic therapy: Heparin, clopidogrel Procedure: RCA cannulated with JR4 guide Cloth Washer Back Tender 50 wire passed across lesion into distal vessel Distal RCA and mid RCA lesions predilated with 2.5 compliant balloon Dilated distal lesion stented with 3.5 x 22 mm [place] drug-eluting stent Earlymid RCA lesion stented with 3.5 x 18 mm [place] drug-eluting stent Stents post-dilated with 3.5 noncompliant balloon IC vasodilators administered for spasm Post procedure BECKI 3 flow, stent well expanded with minimal residual stenosis and no apparent cardiac complications. Arterial Closure: TR band Summary: 1. Successful PCI of earlymid RCA and distal RCA with 2 drug-eluting stents (3.5 x 18, 3.5 x 22 [place]). Recommendations: To PCU for continued monitoring Reloaded with clopidogrel 300 mg Continue dual-antiplatelet therapy for at least aspirin, clopidogrel Continue statin, and ASCVD risk factor modification Consult cardiac Rehab Hemodynamics Rest Ao:: Final Ao: 98/47/65 LV: -- Recommendations Recommendations: PCI without planned CABG Specimens Specimens: None Radiation Exposure (mGy) 3390 Contrast (mls) 135 Fluids (cc crystalloids) Fluids (cc crystalloids): 113 Drains Drains: None Anesthesia Moderate Procedural Complication(s) None Disposition PCU ACC Data: Glass Installer Cardiac Status Clinical evaluation leading to the procedure CAD Presenation: Non STEMI Anginal Classification: CCS III Heart Failure: No Cardiogenic Shock within 24 Hours: No Cardiac Arrest within 24 Hours: No Imaging Studies Past 6 Months: Yes Stress Studies Past 6 Months: No Diagnostic Physicians Name: Constantino Tsang MD Status: Elective Closure Device Percutaneous Entry Location: Radial Closure Device: Radial Band Recommendations: PCI without planned CABG PCI Indication: PCI for high risk Non-MIGUELINA Lesion Segment Name: RCA Culprit Artery: Yes Stenosis Prior to Rx (%): 95 Chronic Total Occlusion: No IVUS: No FFR: No Pre-Procedure BECKI Flow: 3 Previously Treated Lesion: No Lesion Complexity: Non-High/Non-C Lesion Length (mm): 15 Thrombus Present: Yes Bifurcation Lesion: No Guidewire Across Lesion: Stenosis Post-Procedure (%): 0 Post-Procedure BECKI Flow: 3 Devices(s) Deployed: Yes Yes Intraprocedure Events Significant Disection: No Perforation: No
[2018-11-16] MEDS ORDERED: SODIUM CHLORIDE 0.9% 1000ML 1,000 ML IV SCH (14:45)
--- NOTE | 2018-11-16 15:43 | Hospitalist Progress Note ---
Date of Service November 16, 2018 Assessment & Plan (1) Non-ST elevation myocardial infarction (NSTEMI): Trop elevated at 3.7 on admission, then 4.7, then down to 3.8. Initial EKG had ST depressions in the lateral leads (V3-V6), TWI in III which then resolved -He was initially placed on a heparin gtt while awaiting cardiac catheterization -Continue DAPT (ASA + Plavix; loaded on 11/15 and again during cardiac catheterization on 11/16) - Cardiology consulted -left heart cath revealed severe single-vessel disease in the RCA-he ended up with 2 drug-eluting stents in the mid and distal RCA -He was started on a beta-thao and is tolerating metoprolol 12.5 mg p.o. 3 times daily - Changed pravastatin to atorvastatin (no prior reaction to high-intensity statins) 40 mg daily -Continue JASPER inhibitor - Echo on 11/15 shows normal EF; no regional wall motion abnormalities -Plan for cardiac rehab referral -Advised patient to defer questions on whether he can play golf or not to the oil bay technician prior to discharge (2) CAD (coronary artery disease), [place] coronary artery: As above (3) Gout: No current gout issues. - Indomethicin PRN is ordered, but would advise caution with using this in the future in the setting of CAD (4) HTN (hypertension): BP is normally well-controlled on home meds. -Continue to hold home amlodipine - Continue JASPER inhibitor - New beta-thao for his NSTEMI - Monitor BP (5) Obesity: BMI 37.9 -Needs weight loss (6) DVT prophylaxis: Heparin drip for NSTEMI is now discontinued -Now on aspirin and Plavix -Add SCDs Disposition-remain on PCU overnight and if doing well, can likely be discharged home tomorrow Subjective Patient just returned from cardiac catheterization where he had 2 stents placed in the RCA. He is feeling very well. Denies any chest pain shortness of breath, no lightheadedness or headache, no abdominal pains. He is moving his bowels and making urine. Denies leg swelling. He is asking if he can play golf this coming Friday. I discussed the case with the oil bay technician earlier today Telemetry with normal sinus rhythm with rates in the 60s Review of Systems Review of Systems: All systems reviewed & are unremarkable except as noted in HPI & below Physical Exam Constitutional: WD/WN, vitals as above Eyes: PERRL, conjunctivae normal, anicteric sclerae ENMT: external ear and nose normal, oropharynx normal Neck: trachea midline, no thyromegaly Respiratory: normal respiratory effort, lungs clear to auscultation Cardiovascular: RRR, no murmur, no edema (Right wrist with TR band in place without evidence of bleeding) Gastrointestinal (Abdomen): normal bowel sounds, soft, nontender, no hepatosplenomegaly Musculoskeletal: Extremities: extremities normal to inspection; no cyanosis and no clubbing Skin: no rashes, warm and dry Neurologic: moves all extremities and awake; no focal motor deficits Psychiatric: A+Ox3, euthymic affect Results & Data Vital Signs (Past 12 Hours) Vital Signs Temp Pulse Resp BP Pulse Ox 11/16/18 14:53 67 16 138/60 98 11/16/18 14:39 36.5 C 64 18 112/59 L 97 11/16/18 14:38 36.5 C 67 18 112/59 L 97 11/16/18 07:09 36.8 C 64 16 138/82 96 Laboratory Results 11/16/18 11/16/18 11/16/18 Range/Units 13:10 12:52 05:38 WBC (4.8-10.8) K/uL RBC (4.7-6.1) M/uL Hgb (14.0-18.0) g/dL Hct (42-52) % MCV (80-100) fL MCH (25-34) pg MCHC (32-36) g/dL RDW Std Deviation (36.4-46.3) fL RDW Coeff of Kathy (11.5-14.5) % Plt Count (130-400) K/uL MPV (7.4-10.4) fL APTT 57.8 H* (21.0-31.0) Seconds PTT Ratio 2.1 Activ Coag Time Kaolin 230 H 164 H (94-140) SECONDS Sodium (136-145) mmol/L Potassium (3.5-5.1) mmol/L Chloride (98-107) mmol/L Carbon Dioxide (21-32) mmol/L Anion Gap (3-11) BUN (7-18) mg/dl Creatinine (0.6-1.4) mg/dl Est Cr Clr Drug Dosing ml/min Est GFR ( Amer) Est GFR (Non-Af Amer) BUN/Creatinine Ratio (10-20) Glucose (70-99) mg/dl Calcium (8.5-10.1) mg/dl 11/16/18 11/16/18 Range/Units 05:38 05:38 WBC 8.18 (4.8-10.8) K/uL RBC 4.85 (4.7-6.1) M/uL Hgb 13.8 L (14.0-18.0) g/dL Hct 41.4 L (42-52) % MCV 85.4 (80-100) fL MCH 28.5 (25-34) pg MCHC 33.3 (32-36) g/dL RDW Std Deviation 45.3 (36.4-46.3) fL RDW Coeff of Kathy 14.6 H (11.5-14.5) % Plt Count 231 (130-400) K/uL MPV 9.0 (7.4-10.4) fL APTT (21.0-31.0) Seconds PTT Ratio Activ Coag Time Kaolin (94-140) SECONDS Sodium 141 (136-145) mmol/L Potassium 4.2 (3.5-5.1) mmol/L Chloride 108 H (98-107) mmol/L Carbon Dioxide 27 (21-32) mmol/L Anion Gap 6.0 (3-11) BUN 19 H (7-18) mg/dl Creatinine 1.16 (0.6-1.4) mg/dl Est Cr Clr Drug Dosing 79.5 ml/min Est GFR ( Amer) 77.2 Est GFR (Non-Af Amer) 66.7 BUN/Creatinine Ratio 16.7 (10-20) Glucose 113 H (70-99) mg/dl Calcium 8.9 (8.5-10.1) mg/dl PG Care Time/CCT Total # of Minutes Spent Total Time Spent with Patient: Total time spent is greater than 50% in coordination of care (as documented) at patient's floor/unit and/or counseling patient:
--- NOTE | 2018-11-16 15:48 | Cardiology Progress Note ---
Date of Service November 16, 2018 Assessment & Plan (1) Non-ST elevation myocardial infarction (NSTEMI): He appears to have had an acute coronary syndrome involving the right coronary artery. He did undergo percutaneous intervention. Will continue on the dual anti-platelet therapy, high-dose statin therapy and beta-blockade. Patient was on Eliseo inhibition as an outpatient. (2) Hyperlipidemia: He was on pravastatin as an outpatient. Notes suggest changing this to atorvastatin 80 milligrams. Subjective This afternoon the patient claims to be feeling well. He is anxious to go home. He is not complaining of any pain in the right arm or hand. He denies any recurrent chest pain with activity. No breathing difficulty. Review of Systems Review of Systems: Per HPI Physical Exam Physical Exam: The patient is alert and oriented. Mood and affect appeared normal. He answered all questions appropriately. HEENT: Pupils are equal and reactive to light and accommodation. Extraocular movements are intact. The sclerae are anicteric. Neuro: Cranial nerves intact Neck: Patient's neck is supple. He has palpable carotid pulses bilaterally without bruits on auscultation. There is no evidence of jugular venous distention. The thyroid is not enlarged. Lungs: Clear to auscultation bilaterally. He has good air movement without use of accessory muscles. No rales wheezes or rhonchi. Cardiac: Heart demonstrates a regular rate and rhythm. Normal S1 and S2. No murmurs on examination. Pulses: The patient has palpable radial pulses bilaterally that are equal in intensity Extremities: There was no evidence of hypoperfusion. There is no cyanosis or clubbing. There is no edema. Skin: I did not appreciate any rashes on examination today. Results & Data Vital Signs (Past 12 Hours) Vital Signs Temp Pulse Resp BP Pulse Ox 11/16/18 14:53 67 16 138/60 98 11/16/18 14:39 36.5 C 64 18 112/59 L 97 11/16/18 14:38 36.5 C 67 18 112/59 L 97 11/16/18 07:09 36.8 C 64 16 138/82 96 Laboratory Results Abnormal Lab Results 11/16/18 11/16/18 11/16/18 05:38 05:38 05:38 WBC 8.18 RBC 4.85 Hgb 13.8 L Hct 41.4 L MCV 85.4 MCH 28.5 MCHC 33.3 RDW Std Deviation 45.3 RDW Coeff of Kathy 14.6 H Plt Count 231 MPV 9.0 APTT 57.8 H* PTT Ratio 2.1 Activ Coag Time Kaolin Sodium 141 Potassium 4.2 Chloride 108 H Carbon Dioxide 27 Anion Gap 6.0 BUN 19 H Creatinine 1.16 Est Cr Clr Drug Dosing 79.5 Est GFR ( Amer) 77.2 Est GFR (Non-Af Amer) 66.7 BUN/Creatinine Ratio 16.7 Glucose 113 H Calcium 8.9 11/16/18 11/16/18 12:52 13:10 WBC RBC Hgb Hct MCV MCH MCHC RDW Std Deviation RDW Coeff of Kathy Plt Count MPV APTT PTT Ratio Activ Coag Time Kaolin 164 H 230 H Sodium Potassium Chloride Carbon Dioxide Anion Gap BUN Creatinine Est Cr Clr Drug Dosing Est GFR ( Amer) Est GFR (Non-Af Amer) BUN/Creatinine Ratio Glucose Calcium Diagnostic Findings Cardiac catheterization performed today revealed normal left ventricular filling pressures. There appeared to be an acute coronary syndrome involving the proximal right coronary artery. There is nonobstructive disease involving the LAD and circumflex. ECG Additional Comments: Normal sinus rhythm. No arrhythmia.
[2018-11-16] MEDS: ATORVASTATIN 40 MG TAB PO SCH (20:14)
[2018-11-17 06:54] LABS: Basophils # (auto) 0.02 K/uL (0-0.2); Basophils % (auto) 0.2 %; Eosinophils # (auto) 0.41 K/uL (0-0.5); Eosinophils % (auto) 4.8 %; Hematocrit (blood only) 42.4 % (42-52); Hemoglobin 14.1 g/dL (14.0-18.0); Immature Granulocytes # (auto) 0.02 K/uL (0.00-0.02); Immature Granulocytes % (auto) 0.2 %; Lymphocytes # (auto) 2.04 K/uL (1.2-3.4); Lymphocytes % (auto) 24.1 %; Mean Corpuscular Hgb Conc 33.3 g/dL (32-36); Mean Corpuscular Volume 84.8 fL (80-100); Mean Platelet Volume 8.8 fL (7.4-10.4); Monocytes # (auto) 0.79 K/uL (0.11-0.59); Monocytes % (auto) 9.3 %; Neutrophils # (auto) 5.19 K/uL (1.4-6.5); Neutrophils % (auto) 61.4 %; Platelet Count 245 K/uL (130-400); RDW Coefficient of Variation 14.5 % (11.5-14.5); White Blood Count 8.47 K/uL (4.8-10.8)
[2018-11-17 07:10] LABS: BUN Creatinine Ratio 16.9 (10-20); Creatinine Clr Calc Pharmacy 74.8 ml/min; Est GFR (Non-African American) 62.1; Potassium 4.3 mmol/L (3.5-5.1)
[2018-11-17] MEDS: ASPIRIN 81 MG ECTAB PO SCH (07:41)
[2018-11-17] MEDS: METOPROLOL TARTRATE 25 MG TAB PO SCH (07:41)
[2018-11-17] MEDS: ENALAPRIL MALEATE 10 MG TAB PO SCH (07:42)
[2018-11-17] MEDS: CLOPIDOGREL BISULFATE 75 MG TAB PO SCH (07:42)
--- NOTE | 2018-11-17 10:59 | Cardiology Progress Note ---
Date of Service November 17, 2018 Assessment & Plan (1) Non-ST elevation myocardial infarction (NSTEMI): Continue dual anti-platelet therapy, preferably for 1 year. Continue Eliseo inhibition and beta-blockade at current doses. Continue high-dose atorvastatin. Patient refrain from vigorous use of the right arm for another 5 days. Patient is okay for discharge today from a cardiology standpoint. No recurrent angina, evidence of heart failure or arrhythmia. He should follow up either locally or with his primary care physician within a few weeks. (2) Hyperlipidemia: Switch to high-dose atorvastatin Subjective This morning patient claims to be feeling well. He was ambulatory around the mahan without recurrent symptoms of chest discomfort. No dyspnea. He was anxious for discharge. Review of Systems Review of Systems: Per HPI Physical Exam Physical Exam: The patient is alert and oriented. Mood and affect appeared normal. He answered all questions appropriately. HEENT: Pupils are equal and reactive to light and accommodation. Extraocular movements are intact. The sclerae are anicteric. Neuro: Cranial nerves intact Lungs: Clear to auscultation bilaterally. He has good air movement without use of accessory muscles. No rales wheezes or rhonchi. Cardiac: Heart demonstrates a regular rate and rhythm. Normal S1 and S2. No murmurs on examination. Pulses: The patient has palpable radial pulses bilaterally that are equal in intensity Extremities: There was no evidence of hypoperfusion. There is no cyanosis or clubbing. There is no edema. Right hand was warm and had good perfusion. There was a soft palpable radial pulse on the right wrist Skin: I did not appreciate any rashes on examination today. Results & Data Vital Signs (Past 12 Hours) Vital Signs Temp Pulse Pulse Resp BP Pulse Ox 11/17/18 08:00 65 11/17/18 07:21 36.9 C 66 18 118/77 95 11/17/18 03:02 36.5 C 63 16 138/89 97 Laboratory Results Abnormal Lab Results 11/16/18 11/16/18 11/17/18 12:52 13:10 06:15 WBC 8.47 RBC 5.00 Hgb 14.1 Hct 42.4 MCV 84.8 MCH 28.2 MCHC 33.3 RDW Std Deviation 45.0 RDW Coeff of Kathy 14.5 Plt Count 245 MPV 8.8 Immature Gran % (Auto) 0.2 Neut % (Auto) 61.4 Lymph % (Auto) 24.1 [place] % (Auto) 9.3 Eos % (Auto) 4.8 Baso % (Auto) 0.2 Immature Gran # (Auto) 0.02 Neut # (Auto) 5.19 Lymph # (Auto) 2.04 [place] # (Auto) 0.79 H Eos # (Auto) 0.41 Baso # (Auto) 0.02 Activ Coag Time Kaolin 164 H 230 H Sodium Potassium Chloride Carbon Dioxide Anion Gap BUN Creatinine Est Cr Clr Drug Dosing Est GFR ( Amer) Est GFR (Non-Af Amer) BUN/Creatinine Ratio Glucose Calcium 11/17/18 06:19 WBC RBC Hgb Hct MCV MCH MCHC RDW Std Deviation RDW Coeff of Kathy Plt Count MPV Immature Gran % (Auto) Neut % (Auto) Lymph % (Auto) [place] % (Auto) Eos % (Auto) Baso % (Auto) Immature Gran # (Auto) Neut # (Auto) Lymph # (Auto) [place] # (Auto) Eos # (Auto) Baso # (Auto) Activ Coag Time Kaolin Sodium 138 Potassium 4.3 Chloride 106 Carbon Dioxide 26 Anion Gap 6.0 BUN 21 H Creatinine 1.23 Est Cr Clr Drug Dosing 74.8 Est GFR ( Amer) 72.0 Est GFR (Non-Af Amer) 62.1 BUN/Creatinine Ratio 16.9 Glucose 104 H Calcium 9.0 Diagnostic Findings Catheterization performed yesterday revealed nonobstructive disease in the LAD and left circumflex with evidence of an acute coronary syndrome involving the right coronary artery.
--- NOTE | 2018-11-17 13:03 | Discharge Summary ---
Date of Service November 17, 2018 Admission HPI Per Admitting Provider 63 y/o M c/o chest pain. Pt states that yesterday was a normal day for him. He had no issues. He woke around 2-3a with chest stiffness, nausea, and diaphoresis. This lasted about an hour but did resolve and he was able to go back to sleep. He was mowing the lawn this morning when he had return of chest pain. It did resolve but now he has pain return with any activity, including short walking distances. He does get SOB with this. No return of nausea or diaphoresis. He has no prior episodes of chest pain. Pt denies fever, abd pain, v/c/d, LE pain or swelling. PA in the ED spoke with Dr. Nevarez who plans for lopressor and heparin. He will plan for a cath on Friday unless pt has new EKG changes or chest pain at rest. Principal Diagnosis NSTEMI Discharge Exam Constitutional WD/WN, vitals as above Eyes PERRL, conjunctivae normal, anicteric sclerae ENMT external ear and nose normal, oropharynx normal Neck trachea midline, no thyromegaly Respiratory normal respiratory effort, lungs clear to auscultation Cardiovascular RRR, no murmur, no edema Gastrointestinal (Abdomen) normal bowel sounds, soft, nontender, no hepatosplenomegaly Musculoskeletal Extremities: extremities normal to inspection; no cyanosis and no clubbing Skin no rashes, warm and dry Neurologic moves all extremities and awake; no focal motor deficits Psychiatric A+Ox3, euthymic affect Discharge Data Allergies Allergy/AdvReac Type Severity Reaction Status Date / Time No Known Allergies Allergy Verified 11/14/18 16:58 Consultations Cardiology Procedures Performed Operation Date: 11/16/18 06:55 Actual Procedures p Cath, Coronaries ONLY (no LV) - Refugio Nevarez MD s Drug Eluting Stent SGl Vessel - Refugio Tsang MD s Cineradiography w/Routine Exam - Refugio Tsang MD Ordered Studies 11/16/18 06:54 CL Cath Imgs for PACS use only Routine CXR : XR chest 1V portable CLINICAL HISTORY: 63 years-old Male presenting with Chest Pain, chest tightness. TECHNIQUE: Portable upright AP view of the chest was obtained. COMPARISON: None. FINDINGS: Cardiac silhouette borderline enlarged. No focal opacity. No large effusion or pneumothorax. Osseous structures normal. Upper abdomen normal. IMPRESSION: 1. No acute cardiopulmonary disease. ECHO Hospital Course (1) Non-ST elevation myocardial infarction (NSTEMI): Trop elevated at 3.7 on admission, then 4.7, then down to 3.8. Initial EKG had ST depressions in the lateral leads (V3-V6), TWI in III which then resolved -He was initially placed on a heparin gtt while awaiting cardiac catheterization -Continue DAPT (ASA + Plavix; loaded on 11/15 and again during cardiac catheterization on 11/16) for at least one year - Cardiology consulted -left heart cath revealed severe single-vessel disease in the RCA-he ended up with 2 drug-eluting stents in the mid and distal RCA -He was started on a beta-thao and is tolerating metoprolol 25mg po bid - Changed pravastatin to atorvastatin (no prior reaction to high-intensity statins) 80 mg daily -Continue JASPER inhibitor and amlodipine from home - Echo on 11/15 shows normal EF; no regional wall motion abnormalities He was doing very well by the day after the cath and had no further chest pain, no arrhythmias on telemetry monitoring Needs to f/u with PCP and get referral to a Centralized Traffic Control Operator in his area after discharge -Plan for cardiac rehab referral-he can get this from his Centralized Traffic Control [facility] [place] -advised to not partake in vigorous activity involving the right wrist x 5 days (2) CAD (coronary artery disease), pauma coronary artery: As above -gave Rx for NTG SL to take prn (3) Gout: No current gout issues. - Indomethicin PRN is what he takes at home, but would advise caution with using this in the future in the setting of CAD (4) HTN (hypertension): BP is normally well-controlled on home meds. -ok to continue home amlodipine - Continue home JASPER inhibitor - started metoprolol for his NSTEMI/CAD (5) Obesity: BMI 37.9 -Needs weight loss (6) DVT prophylaxis: Heparin drip was initially provided SCDs Disposition-stable for discharge to home Total Time Total Time Spent Total Time Spent (In Minutes): >30 min Total Time Includes: Examination of the Patient, Discharge Planning and Medication Reconciliation Discharge Plan Discharge Items Patient Disposition: Home - Self-Care Reason For Visit: CHEST PAIN Discharge Diagnosis: NSTEMI Condition: Good Discharge Goals: Decrease discomfort, Diagnostic testing, Improve disease control, Learn about illness and Therapeutic intervention Activity: As commented below Lifting: No more than 10 pounds Bathing: No limitations Exercise/Sports: Wait until after follow-up appointment Exercise Comment: No vigorous use of right arm for 5 days Driving/Machine Use: Resume 3 days after discharge Non-emergency contact: Primary Care Provider and Centralized Traffic Control Operator Call non-emergency contact if: you have any medication questions, your symptoms worsen, your pain is not controlled, your pain is worsening, your pain is unusual for you, your wound has increased redness, your wound has increased drainage and your wound pain has increased Follow-up/Referrals: Tom Brown [Other] - 11/30/18 10:00 am (A follow up appt. was made with DANIEL Perez in Dr. Brown's office for Friday, November 30, 2018 at 10:00. This is the first available appt.) Refugio Nevarez MD [Physician] - 12/07/18 1:45 pm (A follow up appt. has been made for you with Dr. Nevarez on December 07 at 1:45pm.) PCP,NO [Physician] - Diet: Heart Healthy Addtl Provider Instructions: ACTIVITY RECOMMENDATIONS: Excess manipulation of the wrist should be avoided for the next 3 days. * No lifting over 2 pounds (approximately a 1/2 gallon of milk) with the utilized arm for 24 hours. * No strenuous activity such as bowling or tennis for 3 days. * Keep the site of the procedure covered with a bandage for 24 hours. *You may shower the day after the procedure. Do not take a tub bath or submerge the puncture site in water for the next 3 days. *Do not operate any motorized equipment for 3 days. SPECIAL CARE INSTRUCTIONS: The site may be slightly bruised and sore following your procedure. Should any of the following occur, contact the DrRicky who performed your procedure. 1. Redness/inflammation, swelling, chills, or fever, or colored drainage at procedure site within 3-7 days after your procedure. 2. Coldness, discoloration, ongoing numbness, severe pain, or swelling. Expect mild tingling of hand and tenderness at the puncture site for up to three days. If this persists beyond three days, or other symptoms develop, notify the Dr. who performed your procedure. BLEEDING: If the procedure site on your wrist begins to bleed, do not panic 1. Place 1 or 2 fingers firmly just slightly above the insertion site to stop the bleeding. You may be able to feel your pulse as you hold pressure. 2. Lift your finger after 5 minutes to see if the bleeding has stopped. 3. Once the bleeding has stopped, gently wipe the wrist area clean with a bandage. * If the bleeding from your wrist does not stop after 10 minutes, or if there is a large amount of bleeding or spurting, call 911 (do not drive yourself to the hospital). SKIN IRRITATION: * You may experience some redness and/or swelling in the area where radiation was administered. If any skin irritation occurs, please contact your family physician. FOLLOW UP VISIT: Keep any scheduled doctor appointments. You were started on several new medications for your heart. You were changed from Pravastatin to Lipitor (atorvastatin) 80mg daily for your cholesterol. You were also started on metoprolol and Plavix. If you experience chest pain, shortness of breath ,nausea, headache, lightheadedness, or any other concerning symptom, please go to the closest ER immediately. Please follow up with your PCP within 1 week after discharge. You will need a referral to a local Centralized Traffic Control Operator and also to Cardiac Rehab. Prescriptions: New clopidogrel 75 mg Tablet 75 mg PO QAM Qty: 30 RF: 0 atorvastatin 80 mg tablet 80 mg PO HS Qty: 30 RF: 0 nitroglycerin [Nitrostat] 0.4 mg Tablet, Sublingual 0.4 mg sublingual Q5M PRN (Reason: chest pain) Qty: 15 RF: 0 metoprolol tartrate 25 mg Tablet 25 mg PO BID Qty: 60 RF: 0 Continued amlodipine-benazepril 5-20 mg Capsule 1 cap PO DAILY RF: 0 aspirin 81 mg Tablet,Delayed Release (Dr/Ec) 81 mg PO QAM Qty: 30 RF: 0 Discontinued pravastatin 40 mg Tablet 40 mg PO HS RF: 0 indomethacin 50 mg Capsule 50 mg PO DAILY RF: 0 Stand-Alone Forms: [facility] Discharge Orders: Discharge Order (Routine); Ordered 11/17/18 Ordered By: Radha Zee Admission Data Admit Date/Time: 11/14/18 19:04 Attending Provider: Radha Zee Admit Provider: Joy Landrum Primary Care Provider: Tom Brown Other Providers: Refugio Nevarez ; Papa Yancye Service: Telemetry Other Interventions: Discharge Summary Assessment (RN) Last Done: 11/17/18 13:05 Pending Studies at Discharge: No DC Date/Time DO NOT enter until pt leaves facility: 11/17/18 13:26
[2018-11-17] MEDS ORDERED: ATORVASTATIN 40 MG TAB PO SCH (21:00)
--- NOTE | 2018-11-25 10:52 | Cardiac Catheterization ---
Date of Service November 16, 2018 Cardiac Cath Report Cardiac Cath Report Procedure performed: Cardiac catheterization Staff alum mixer: Constantino Nevarez MD Indication: Patient is a 63-year-old gentleman who presented to the hospital with symptoms of chest discomfort and elevated cardiac biomarkers. He was therefore brought to the cardiac catheterization suite for non ST elevation myocardial infarction. Procedure in detail: The patient was informed of the risks benefits and alternatives to the intended procedure, he understood such and wished to proceed. He was taken to the cardiac catheterization suite in a fasting state. Conscious sedation was administered per protocol and the patient was monitored electrocardiographically throughout today's procedure. The right wrist area was prepped and draped in usual sterile fashion. This area was anesthetized using subcutaneous administration of a lidocaine solution. The right radial artery was then accessed using Seldinger technique, and a arterial sheath was placed at this site over a guidewire. The sheath was used to facilitate passage of the cardiac catheter for coronary angiography and left heart catheterization. Coronary angiogram was then obtained in multiple orthogonal views prior to removal of the catheter. At the conclusion of the procedure the sheath was removed and hemostasis was achieved at the access site using manual pressure. The patient tolerated procedure well, there were no immediate complications. Equipment used: 5 [place] tiger 4 Findings: Opening aortic pressure: 94/59 millimeters of mercury Left ventricular pressure: 104/0 millimeters Hg Left ventricular end-diastolic pressure: 11 millimeters Hg Closing aortic pressure: 103/54 millimeters of mercury Coronary angiography: Left main: Left main was normal in size and caliber without evidence of significant stenosis Left anterior descending: Left anterior descending artery was a large transapical vessel. He had approximately 50-60 percent stenosis after the takeoff of the 1st diagonal branch. There was a large 1st diagonal with approximately 30 percent stenosis in its midportion. Several other diminutive diagonal branches were seen in the distal vessel. There is no other discrete lesions. Left circumflex: Left circumflex was a non dominant vessel. It approximately 60 percent stenosis in its proximal portion. It produced a very diminutive 1st OM branch and a large 2nd OM branch. There were no other discrete lesions. Right coronary artery: The right coronary artery was a large dominant vessel. He had a 99 percent stenosis in its proximal portion and a 90 percent stenosis in its mid distal portion prior to takeoff of the PLB and PDA branches. Impression: Acute coronary syndrome involving the right coronary artery Normal left ventricular end-diastolic pressure Right-dominant coronary system Plan: Immediate referral for percutaneous intervention involving the right coronary artery.
== END 2018-11-17 13:26 | disposition home or self-care (01) | DRG 229 ==
LOC: ED 15:41 → SUATTDRO 19:04 → 2E 19:04
PROC: CLB.CCO (~2018-11-14)
DX: I10 Essential (primary) hypertension; I21.4 Non-ST elevation (NSTEMI) myocardial infarction; E66.9 Obesity, unspecified; I25.10 Atherosclerotic heart disease of native coronary artery without angina pectoris; Z68.37 Body mass index [BMI] 37.0-37.9, adult; M10.9 Gout, unspecified; E78.5 Hyperlipidemia, unspecified; Z79.82 Long term (current) use of aspirin